=== PATIENT | male | born 1990 | race African-American/Black ===

== ENCOUNTER 2022-12-19 22:05 | Emergency (ER) | payer SELFPAY ==
[2022-12-19 22:12] VITALS: BP 188/106; PULSE 86; RESP 17; TEMP 36.6; O2SAT 100
[2022-12-20 01:14] VITALS: BP 158/111; PULSE 74; O2SAT 98
--- NOTE | 2022-12-20 01:36 | ED.RECABL ---
HPI - Recheck/Abnormal Lab/Rx General Chief Complaint: Recheck/Abnormal Lab/Rx Stated Complaint: HTN Time Seen by Provider: 12/20/22 01:23 History of Present Illness HPI narrative: This is a 32-year-old male, with history of hypertension, who presents emergency department for elevated blood pressure and requesting medication refill. The patient states he has not taken his medications in the past 2 days. He travels for work and left his medications at home. He noticed her blood pressure at home was in the 180s systolic. He denies chest pain, shortness of breath or weakness. Related Data Allergies Allergy/AdvReac Type Severity Reaction Status Date / Time Penicillins Allergy Hives Verified 12/20/22 01:14 Review of Systems Review of Systems: CONSTITUTIONAL: Denies fever, chills, or sweats. CARDIOVASCULAR: Denies chest pain, palpitations, or edema. RESPIRATORY: Denies cough or dyspnea. GASTROINTESTINAL: Denies abdominal pain, nausea, vomiting, or diarrhea. GENITOURINARY: Denies dysuria or hematuria. SKIN: Denies rash or itching. MUSCULOSKELETAL: Denies back pain, joint pain, or myalgia. NEUROLOGIC: Denies headache, numbness, dizziness, or weakness. PSYCHIATRIC: Denies anxiety or depression. [facility] Surgical History Surgical History (Updated 12/21/22 @ 08:10 by Lico Alvarez MD) No significant past surgical history Social History Social History (Updated 12/21/22 @ 08:10 by Lico Alvarez MD) Smoking status: Never smoker Alcohol intake: never Substance use: never Exam Narrative: GENERAL: Well-developed, well-nourished, and in no acute distress. HEAD: Normocephalic, atraumatic. EYES: PERRLA and EOMI. CHEST: Clear to auscultation. No respiratory distress. No wheezes rales or rhonchi HEART: Regular rate and rhythm. No murmur heard. Normal peripheral pulses. ABDOMEN: Soft, nontender, nondistended, normal active bowel sounds. EXTREMITIES: Normal range of motion. No edema. SKIN: Warm, dry, no rash. NEURO: Alert and oriented x3. Moving all 4 limbs purposefully. PSYCH: Normal mood and affect. Course Course Emergency Course: 01:35 - Blood pressure spontaneously improved to 156/94. Will discharge with medication refill. Discussed return emergency precautions including signs/symptoms of ACS, respiratory distress and stroke. The patient voiced understanding and is comfortable with plan. All questions answered to his satisfaction. Vital Signs Vital signs: Vital Signs Temperature 97.9 F 12/19/22 22:12 Pulse Rate 86 12/19/22 22:12 Respiratory Rate 17 12/19/22 22:12 Blood Pressure 188/106 H 12/19/22 22:12 Pulse Oximetry 100 12/19/22 22:12 Oxygen Delivery Room Air 12/19/22 22:12 Temperature 97.9 F 12/19/22 22:12 Pulse Rate 68 12/20/22 02:06 Respiratory Rate 17 12/19/22 22:12 Blood Pressure 156/94 H 12/20/22 02:06 Pulse Oximetry 100 12/20/22 02:06 Oxygen Delivery Room Air 12/19/22 22:12 MDM - Recheck/Abnormal Lab/Rx MDM Narrative Medical decision making narrative: Plan: Primary care follow-up, medication refill Differential Diagnosis Differential diagnosis: Likely encounter for medication refill and other (Hypertension, other) Discharge Plan Discharge Clinical Impression: Encounter for medication refill, HTN (hypertension) Patient Disposition: Home, Self-Care Condition: Stable Instructions: Antibiotic Form, Chronic Hypertension (ED) Additional Instructions: You were seen in the emergency department. Your blood pressure began improving without intervention. I have refilled your medication. If you develop chest pain, weakness/numbness, difficulty breathing, or if you have other emergent concerns for life, limb, or eyesight, return to the emergency department. Patient Language: Spanish Prescriptions: New amlodipine 10 mg tablet 10 mg PO DAILY Qty: 30 0RF Follow-up/Referrals: PHYSICIAN NOT ON STAFF,NONSTAFF [Prima
[2022-12-20 02:06] VITALS: BP 156/94; PULSE 68; O2SAT 100
== END 2022-12-20 02:08 | disposition home or self-care (01) ==
LOC: ANHED 12-20 01:45
PROVIDERS: Emergency Provider Preventive Medicine Aerospace Medicine
DX: I10 Essential (primary) hypertension (principal); Z76.0 Encounter for issue of repeat prescription
CPT/HCPCS: 99283